=== PATIENT | male | born 1960 | race African-American/Black ===

== ENCOUNTER 2020-05-09 16:34 | Emergency (ER) | payer MEDICAID ==
[~2020-05-09] VITALS: Ht 172.7 cm; Wt 91.0 kg
[~2020-05-09 16:34] MED LIST: GABA-529 PO; METF-414 PO; TRAM50TA3 PO
[2020-05-09 20:34] LABS: HEMATOCRIT. 44.3 % (42.0-52.0); HEMOGLOBIN. 15.2 g/dL (14.0-18.0); MEAN CORPUSCULAR HEMOGLOBIN 32.4 pg (28.0-32.0); MEAN CORPUSCULAR VOLUME 94.4 fL (80.0-94.0); MEAN PLATELET VOLUME 8.8 fl (7.4-10.4); PLATELET 223 x1000/uL (130-400); RED BLOOD CELL COUNT 4.69 mill/uL (4.7-6.1); RED CELL DISTRIBUTION WIDTH 13.7 % (11.6-14.6)
[2020-05-09 20:42] LABS: CHLORIDE 105 mEq/L (98-107)
[2020-05-09 21:05] LABS: PLATELET ESTIMATE NORMAL
[2020-05-09 22:01] VITALS: BP 119/81
== END 2020-05-09 22:06 | disposition home or self-care (01) ==
LOC: ER 16:34
DX: R07.89 Other chest pain (principal); I10 Essential (primary) hypertension; J45.909 Unspecified asthma, uncomplicated; E11.9 Type 2 diabetes mellitus without complications; Z90.49 Acquired absence of other specified parts of digestive tract; Z79.899 Other long term (current) drug therapy
CPT/HCPCS: 36415; 71045; 80053; 83880; 84484; 85025; 85379; 93005; 99284; 99285

== ENCOUNTER 2020-06-25 17:14 | Emergency (ER) | payer MEDICAID ==
[~2020-06-25] VITALS: Ht 177.8 cm; Wt 78.0 kg
[2020-06-25 18:55] VITALS: BP 130/91
== END 2020-06-25 19:15 | disposition home or self-care (01) ==
LOC: ER 17:14
DX: J02.9 Acute pharyngitis, unspecified (principal); E11.9 Type 2 diabetes mellitus without complications; I10 Essential (primary) hypertension; J45.909 Unspecified asthma, uncomplicated; Z20.822 Contact with and (suspected) exposure to COVID-19; Z90.49 Acquired absence of other specified parts of digestive tract
CPT/HCPCS: 82962; 99283; C9803; U0003; 99281

== ENCOUNTER 2021-09-12 21:54 | Emergency (ER) | payer MEDICAID ==
[~2021-09-12] VITALS: Ht 177.8 cm; Wt 100.0 kg
[~2021-09-12 21:54] MED LIST changes: +ASPI-1406 PO; -GABA-529 PO; -METF-414 PO; +RISP05 PO; +SERT25TA74 PO; -TRAM50TA3 PO
[2021-09-12] MEDS ORDERED: OLANZAPINE 10 MG/VIAL IM ONE (22:45)
[2021-09-12] MEDS ORDERED: DIPHENHYDRAMINE 50MG/ML VIAL IM ONE (22:45)
[2021-09-13 04:40] LABS: CLARITY URINE CLEAR (CLEAR); COLOR URINE YELLOW (YELLOW); KETONES URINE NEGATIVE (NEGATIVE); LEUKOCYTE ESTERASE URINE NEGATIVE (NEGATIVE); NITRITE URINE NEGATIVE (NEGATIVE); OCCULT BLOOD URINE NEGATIVE (NEGATIVE); PH URINE 5.5 (4.5-8.0); PROTEIN URINE NEGATIVE (NEGATIVE); SPECIFIC GRAVITY URINE 1.008 (1.005-1.030)
[2021-09-13 04:49] LABS: CANNABINOID URINE SCREEN NEGATIVE (NEGATIVE); OPIATES URINE SCREEN NEGATIVE (NEGATIVE); PHENCYCLIDINE URINE SCREEN NEGATIVE (NEGATIVE)
[2021-09-13 04:50] LABS: *AMPHETAMINES SCREEN URINE NEGATIVE (NEGATIVE); *BARBITURATES SCREEN URINE NEGATIVE (NEGATIVE); *BENZODIAZEPINES SCREEN URINE PRESUMTIVE POSITIVE (NEGATIVE); *COCAINE SCREEN URINE PRESUMTIVE POSITIVE (NEGATIVE); METHADONE URINE SCREEN NEGATIVE (NEGATIVE)
[2021-09-13] MEDS ORDERED: OLANZAPINE 10 MG/VIAL IM ONE (05:15)
[2021-09-13 06:19] LABS: BASOPHILS % 0.3 % (0.0-2.0); EOSINOPHILS % 1.8 % (0.0-5.0); HEMATOCRIT. 41.1 % (42.0-52.0); HEMOGLOBIN. 13.7 g/dL (14.0-18.0); MEAN CORPUSCULAR HEMOGLOBIN 30.3 pg (28.0-32.0); MEAN CORPUSCULAR VOLUME 91.4 fL (80.0-94.0); MEAN PLATELET VOLUME 8.8 fl (7.4-10.4); MONOCYTES % 10.7 % (2.0-8.0); NEUTROPHILS % 59.2 % (40.0-76.0); PLATELET 187 x1000/uL (130-400)
[2021-09-13 06:33] LABS: CHLORIDE 116 mEq/L (98-107)
[2021-09-13 06:38] LABS: ETHANOL BLOOD 51 mg/dL
[2021-09-13] MEDS: SERTRALINE HCL 50MG TABLET PO SCH (11:06)
[2021-09-13] MEDS: DIVALPROEX SODIUM 250MG DR TABLET PO SCH ×2 (11:30→21:04)
[2021-09-13] MEDS: RISPERIDONE 0.5MG TABLET PO SCH (21:04)
[2021-09-14] MEDS: DIVALPROEX SODIUM 250MG DR TABLET PO SCH ×2 (11:32→21:29)
[2021-09-14] MEDS: RISPERIDONE 0.5MG TABLET PO SCH ×2 (11:32→21:29)
[2021-09-14] MEDS: SERTRALINE HCL 50MG TABLET PO SCH (11:32)
[2021-09-14] MEDS ORDERED: IPRATROPIUM BROMIDE (0.02%) 0.5MG/2.5ML NEB HHN STA (20:43)
[2021-09-14] MEDS ORDERED: DIPHENHYDRAMINE 50MG/ML VIAL IV ONE (20:45)
[2021-09-14] MEDS ORDERED: DIPHENHYDRAMINE 25MG CAPSULE PO ONE (21:00)
[2021-09-14] MEDS: ALBUTEROL (0.083%) 2.5MG/3ML NEB HHN SCH ×3 (21:03→21:44)
[2021-09-15] MEDS ORDERED: OLANZAPINE 10 MG/VIAL IM ONE (02:45)
[2021-09-15 03:00] VITALS: BP 138/78
[2021-09-15] MEDS ORDERED: OLANZAPINE 10 MG/VIAL IM SCH (03:00)
[2021-09-15] MEDS: DIVALPROEX SODIUM 250MG DR TABLET PO SCH (09:44)
[2021-09-15] MEDS: SERTRALINE HCL 50MG TABLET PO SCH (09:44)
[2021-09-15] MEDS: RISPERIDONE 0.5MG TABLET PO SCH (09:44)
== END 2021-09-15 10:58 ==
LOC: ER 21:54
DX: F20.9 Schizophrenia, unspecified (principal); F91.8 Other conduct disorders; F32.A Depression, unspecified; I10 Essential (primary) hypertension; J45.909 Unspecified asthma, uncomplicated; Z20.822 Contact with and (suspected) exposure to COVID-19; F14.10 Cocaine abuse, uncomplicated; F13.10 Sedative, hypnotic or anxiolytic abuse, uncomplicated; Z75.1 Person awaiting admission to adequate facility elsewhere
CPT/HCPCS: 36415; 80053; 80305; 80307; 80320; 80329; 81003; 85025; 93005; 94640; 96372; 99285; C9803; J1200; J3490; U0003; U0005; Z7610; Q0163; G0480

== ENCOUNTER 2021-12-01 23:36 | Emergency (ER) | payer MEDICAID ==
[~2021-12-01] VITALS: Ht 177.8 cm; Wt 70.0 kg
[2021-12-01 23:39] VITALS: BP 140/80
[2021-12-02] MEDS ORDERED: TETANUS, DIPHTHERIA, PERTUSSIS VAC/PF 0.5ML (>10YR OLD) IM ONE
[2021-12-02] MEDS ORDERED: CEFAZOLIN 1000MG PREMIX 50 ML IV ONE
[2021-12-02] MEDS ORDERED: TOPUD PO (06:55)
== END 2021-12-02 02:05 | disposition left against medical advice (07) ==
LOC: ER 23:36
DX: S01.81XA Laceration without foreign body of other part of head, initial encounter (principal); W18.39XA Other fall on same level, initial encounter; Y93.89 Activity, other specified; Y92.89 Other specified places as the place of occurrence of the external cause; Y99.8 Other external cause status; F10.129 Alcohol abuse with intoxication, unspecified; Y90.0 Blood alcohol level of less than 20 mg/100 ml
CPT/HCPCS: 99283

== ENCOUNTER 2021-12-02 03:49 | Emergency (ER) | payer MEDICAID ==
[~2021-12-02] VITALS: Ht 172.7 cm; Wt 91.0 kg
[2021-12-02 04:06] VITALS: BP 147/102
[2021-12-02] MEDS ORDERED: ACETAMINOPHEN 325MG TABLET PO ONE (05:30)
[2021-12-02] MEDS ORDERED: LIDOCAINE HCL/PF 1% 10 MG/ML 5ML VIAL INFIL ONE (05:30)
[2021-12-02] MEDS ORDERED: TOPUD PO (06:55)
== END 2021-12-02 07:35 | disposition home or self-care (01) ==
LOC: ER 03:49
DX: S01.81XA Laceration without foreign body of other part of head, initial encounter (principal); E11.9 Type 2 diabetes mellitus without complications; I10 Essential (primary) hypertension; J45.909 Unspecified asthma, uncomplicated; Z98.890 Other specified postprocedural states; Y04.0XXA Assault by unarmed brawl or fight, initial encounter; Y93.89 Activity, other specified; Y92.89 Other specified places as the place of occurrence of the external cause; Y99.8 Other external cause status
CPT/HCPCS: 12011; 70450; 70486; 93005; 99284; J3490

== ENCOUNTER 2024-04-01 12:42 | Emergency (ER) | payer MEDICAID ==
[~2024-04-01] VITALS: Ht 177.8 cm; Wt 91.0 kg
[~2024-04-01 12:42] MED LIST changes: +TOPUD PO
[2024-04-01] MEDS: SODIUM CHLORIDE 0.9% 1,000 ML IV ONE (13:18)
[2024-04-01 13:38] LABS: BASOPHILS % 0.2 % (0.0-2.0); EOSINOPHILS % 0.6 % (0.0-5.0); HEMATOCRIT. 42.4 % (42.0-52.0); HEMOGLOBIN. 14.4 g/dL (14.0-18.0); MEAN CORPUSCULAR HEMOGLOBIN 31.3 pg (28.0-32.0); MEAN CORPUSCULAR HGB CONC 33.8 g/dL (31.0-37.0); MEAN CORPUSCULAR VOLUME 92.6 fL (80.0-94.0); MEAN PLATELET VOLUME 9.4 fl (7.4-10.4); MONOCYTES % 5.6 % (2.0-8.0); NEUTROPHILS % 84.6 % (40.0-76.0); PLATELET 203 x1000/uL (130-400); RED BLOOD CELL COUNT 4.58 mill/uL (4.7-6.1); RED CELL DISTRIBUTION WIDTH 14.8 % (11.6-14.6); WHITE BLOOD COUNT 8.9 x1000/uL (4.5-11.0)
[2024-04-01 13:46] LABS: CHLORIDE 109 mEq/L (98-107); POTASSIUM 3.8 mEq/L (3.5-5.1); SODIUM 144 mEq/L (136-145)
[2024-04-01 13:47] LABS: CALCIUM 8.4 mg/dL (8.7-10.4); CARBON DIOXIDE 23 mEq/L (21-32)
[2024-04-01 13:52] LABS: ETHANOL BLOOD 59 mg/dL (<10); GLUCOSE 58 mg/dL (70-105); TROPONIN I HIGH SENSITIVITY 13 ng/L (3.0-53); UREA NITROGEN BLOOD 13 mg/dL (9-23)
[2024-04-01 13:54] LABS: ACETAMINOPHEN < 2 ug/mL (10-30); ALANINE AMINOTRANSFERASE 13 IU/L (10-49); ALBUMIN 3.6 g/dL (3.2-4.8); ASPARTATE AMINOTRANSFERASE 17 IU/L (<34); BILIRUBIN TOTAL 0.5 mg/dL (0.1-1.0); PROTEIN TOTAL 5.4 g/dL (6.0-8.3)
[2024-04-01] MEDS: SODIUM CHLORIDE 0.9% 250 ML IV ONE (15:09)
[2024-04-01 16:49] VITALS: PULSE 90; RESP 20; O2SAT 96
[2024-04-01] MEDS: IPRATROPIUM/ALBUTEROL 0.5-3(2.5)MG/3ML NEB HHN ONE (16:49)
[2024-04-02 03:21] VITALS: PULSE 82; RESP 20; O2SAT 99
[2024-04-02] MEDS: IPRATROPIUM/ALBUTEROL 0.5-3(2.5)MG/3ML NEB HHN ONE (03:21)
[2024-04-02] MEDS ORDERED: ALBUTEROL (0.083%) 2.5MG/3ML NEB HHN ONE (18:15)
[2024-04-02] MEDS: NITROGLYCERIN 0.4MG TABLET SL SL ONE (18:52)
[2024-04-02] MEDS: ALBUTEROL (0.083%) 2.5MG/3ML NEB HHN NR (20:37)
[2024-04-02 20:39] VITALS: PULSE 77; RESP 20; O2SAT 96; O2SAT 97
[2024-04-02 20:42] VITALS: PULSE 77; RESP 20; O2SAT 95
[2024-04-02 23:22] VITALS: BP 122/89; PULSE 72; RESP 20; TEMP 36.66960; O2SAT 98
== END 2024-04-02 23:54 ==
LOC: ER 12:42
DX: E16.2 Hypoglycemia, unspecified (principal); F10.129 Alcohol abuse with intoxication, unspecified; R45.851 Suicidal ideations; I10 Essential (primary) hypertension; R06.02 Shortness of breath; Z98.890 Other specified postprocedural states; Z20.822 Contact with and (suspected) exposure to COVID-19; Y90.2 Blood alcohol level of 40-59 mg/100 ml
CPT/HCPCS: 80053; 80307; 80329; 80320; 82962; 85025; 84484; 36415; 70450; 94640 ×2; 96360; 99285; 87426; Z7610 ×7; J7030; G0480